=== PATIENT | female | born 1995 | race Caucasian/White ===

== ENCOUNTER 2023-09-27 19:32 | Emergency (ER) | payer SELFPAY ==
[2023-09-27] MEDS: Lidocaine 1% 10 ML MDV INJECT ONE (20:40)
[2023-09-27] MEDS ORDERED: Diphtheria,Pertussis(Acell),Tetanus Vaccine 0.5 ML Syringe IM ONE (21:06)
== END 2023-09-27 21:15 | disposition home or self-care (01) ==
LOC: JD.ED 19:32
DX: S51.811A Laceration without foreign body of right forearm, initial encounter (principal); W26.0XXA Contact with knife, initial encounter; Y93.89 Activity, other specified
CPT/HCPCS: 12002; 99283; J3490